=== PATIENT | male | born 1955 | race Two or more races ===

== ENCOUNTER 2016-07-10 11:51 | Emergency (ER) | payer OTHER ==
[2016-07-10 11:58] VITALS: PULSE 91; TEMP 98; BMI 41.5
[2016-07-10 11:59] VITALS: BP 152/77
--- NOTE | 2016-07-10 14:10 | PDOC ---
History of Present Illness - General Chief Complaint: Injury Stated Complaint: FALL/ RT KNEE PAIN Time Seen by Provider: 07/10/16 13:39 History Source: Patient - History of Present Illness Occurred: reports: this morning Lower Extremity Pain Location: right: knee Method of Injury: Yes: fell Past History - Past Medical History Allergies/Adverse Reactions: Allergies Allergy/AdvReac Type Severity Reaction Status Date / Time No Known Allergies Allergy Verified 07/10/16 11:58 Home Medications: Ambulatory Orders Ibuprofen [Motrin -] 800 mg PO Q6H #30 tablet 07/10/16 Metformin HCl [Glucophage] 1,000 mg PO ASDIR 07/10/16 Diabetes: Yes HTN: Yes - Psycho/Social/Smoking Cessation Hx Suicidal Ideation: No Smoking History: Never smoked Information on smoking cessation initiated: No Hx Alcohol Use: No Drug/Substance Use Hx: No Review of Systems - Review of Systems Musculoskeletal: Yes: Joint Pain, Joint Swelling *Physical Exam - Vital Signs Last Vital Signs Temp Pulse Resp BP Pulse Ox 98 F 91 H 18 152/77 97 07/10/16 11:56 07/10/16 11:56 07/10/16 11:56 07/10/16 11:56 07/10/16 11:56 - Physical Exam General Appearance: Yes: Appropriately Dressed. No: Apparent Distress HEENT: positive: Normal Voice Neck: positive: Supple Respiratory/Chest: negative: Respiratory Distress Extremity: positive: Other (large effusion on palpation to aterior knee, patella in place w/ no laxity w/ FROMI, limping in ED) Integumentary: positive: Dry, Warm Neurologic: positive: Fully Oriented, Alert, Normal Mood/Affect ED Treatment Course - RADIOLOGY Radiology Studies Ordered: Category Date Time Status KNEE 3 POS-RIGHT [RAD] Stat Radiology 07/10/16 13:56 Ordered Medical Decision Making - Medical Decision Making 07/10/16 14:08 61-year-old male, history of diabetes and hypertension, here with right knee pain and swelling status post fall. Patient reports that while exiting house this a.m, he tripped and fell, landing directly onto right knee. Has been painful to bear weight since. Denies any other injuries at this time. Patient well-appearing and stable with + effusion to right knee. Limping in ED. R/o fx. Pt declined pain meds in ED 07/10/16 14:55 +effusion w/ non-displaced patella fx and ? patella tendon involvement as per radiology. Case discussed with orthopedic PA who also reviewed images in PACs. Recommends knee immobilizer, crutches and for patient to follow-up with Dr. Lizama in a week 07/10/16 14:58 *DC/Admit/Observation/Transfer Diagnosis at time of Disposition: Patellar fracture Qualifiers: Encounter type: initial encounter Fracture type: closed Fracture morphology: unspecified fracture morphology Fracture alignment: nondisplaced Laterality: right Qualified Code(s): S82.001A - Unspecified fracture of right patella, initial encounter for closed fracture - Discharge Dispostion Disposition: HOME Condition at time of disposition: Good - Prescriptions Prescriptions: Ibuprofen [Motrin -] 800 mg PO Q6H #30 tablet - Referrals Referrals: STAFF,NOT ON [Primary Care Provider] - Elvin Lizama MD [Staff Physician] - - Patient Instructions Printed Discharge Instructions: Patella Fracture Additional Instructions: Please follow-up with Dr. Lizama in one week
== END 2016-07-10 15:15 | disposition home or self-care (01) ==
LOC: JERFT 11:51
DX: S82.091A Other fracture of right patella, initial encounter for closed fracture (principal); W01.0XXA Fall on same level from slipping, tripping and stumbling without subsequent striking against object, initial encounter; Y93.89 Activity, other specified; Y92.038 Other place in apartment as the place of occurrence of the external cause
CPT/HCPCS: 73562-TC-RT; 99282-25